=== PATIENT | male | born 1965 | race Caucasian/White ===

== ENCOUNTER → 2018-11-18 11:24 | Outpatient (CLI) | payer OTHER, SELFPAY ==
--- NOTE | 2018-11-18 | DI.MRI.S_ITS ---
PROCEDURE: MR KNEE RT WO CON INDICATIONS: RIGHT MEDIAL KNEE PAIN TECHNIQUE: Noncontrast sagittal PD fast spin echo and T2 fast spin echo with fat saturation, sagittal 3-D FLASH with fat saturation; coronal T1 spin echo and PD fast spin echo with fat saturation, and axial PD fast spin echo with fat saturation through the knee. COMPARISON: [facility], CR, XR KNEE 3 VIEWS RIGHT, 10/09/2018, 14:38. FINDINGS: Image quality: Excellent. Menisci: There is medial meniscal extrusion and large complex tear involving the body as well as anterior and posterior horns of the medial meniscus. There is subtle degenerative tear of the free edge of the posterior horn and body of the lateral meniscus. The meniscal root ligaments appear intact. Cruciate ligaments: The anterior and posterior cruciate ligaments appear intact. Medial structures: The medial collateral ligament appears intact. The posterior oblique ligament, semimembranosus tendon insertions, oblique popliteal ligament, and meniscocapsular junction appear intact. Visualized portions of the pes anserinus tendons appear normal. No abnormal bursal fluid. Lateral structures: The lateral collateral ligament, long and short heads of the biceps femoris tendon appear intact. The popliteus tendon appears normal; the popliteofibular ligament appears intact. The posterosuperior and anteroinferior popliteomeniscal fascicles appear intact. The arcuate and fabellofibular ligaments appear intact, on either side of the lateral inferior geniculate artery. Iliotibial band appears normal. Anterior structures: The quadriceps and patellar tendons appear intact. Patellar alignment is normal. No femoral trochlear dysplasia or ventral trochlear prominence. No edema in the infrapatellar fat pad. Bones and cartilage: No bone fractures. There is bone marrow contusion involving the medial femoral condyle and medial tibial plateau likely sequelae of bone on bone. There is tricompartmental cartilage thinning and fibrillation, most pronounced in the medial femorotibial compartment and patellofemoral compartment. Joint space: There is moderate knee joint effusion. There is a small Vela's cyst. Normal appearing synovial plicae are incidentally noted. IMPRESSION: 1. Medial meniscal extrusion and large complex tear of the medial meniscus. 2. Subtle degenerative tear of the free edge of the posterior horn and body of the lateral meniscus. 3. Bone marrow contusion involving the medial femoral condyle and medial tibial plateau, likely sequelae of bone on bone. 4. Moderate knee joint effusion. 5. Small Vela cyst. Dictated by: Faye Salter M.D. on 11/18/2018 at 13:00 Approved by: Faye Salter M.D. on 11/18/2018 at 14:42
== END ==
PROVIDERS: Visit Provider Physical Medicine & Rehabilitation
DX: M25.561 Pain in right knee (principal); S83.231A Complex tear of medial meniscus, current injury, right knee, initial encounter; S83.281A Other tear of lateral meniscus, current injury, right knee, initial encounter; S80.01XA Contusion of right knee, initial encounter; M25.461 Effusion, right knee; M71.21 Synovial cyst of popliteal space [Baker], right knee
CPT/HCPCS: 73721

== ENCOUNTER → 2018-12-04 13:48 | Outpatient (CLI) | payer OTHER, SELFPAY ==
--- NOTE | 2018-12-04 | DI.MRI.S_ITS ---
PROCEDURE: MR KNEE RT WO CON INDICATIONS: RIGHT KNEE PAIN TECHNIQUE: Noncontrast sagittal PD fast spin echo and T2 fast spin echo with fat saturation, sagittal 3-D FLASH with fat saturation; coronal T1 spin echo and PD fast spin echo with fat saturation, and axial PD fast spin echo with fat saturation through the knee. COMPARISON: [facility], MR, MR KNEE RT WO CON, 11/18/2018, 12:18. FINDINGS: Image quality: Excellent. Menisci: Medial meniscal tear involving the posterior horn and body with severely macerated appearance of the body and extruded meniscal fragments, possibly within the medial gutter. Lateral meniscus demonstrates truncation of the free margin of the body Cruciate ligaments: The anterior and posterior cruciate ligaments appear intact. Medial structures: The medial collateral ligament appears intact. The posterior oblique ligament, semimembranosus tendon insertions, oblique popliteal ligament, and meniscocapsular junction appear intact. Visualized portions of the pes anserinus tendons appear normal. No abnormal bursal fluid. Lateral structures: The lateral collateral ligament, long and short heads of the biceps femoris tendon appear intact. The popliteus tendon appears normal; the popliteofibular ligament appears intact. The posterosuperior and anteroinferior popliteomeniscal fascicles appear intact. The arcuate and fabellofibular ligaments appear intact, on either side of the lateral inferior geniculate artery. Iliotibial band appears normal. Anterior structures: The quadriceps and patellar tendons appear intact. There is prepatellar and superficial infrapatellar subcutaneous edema. Patellar alignment is normal. No femoral trochlear dysplasia or ventral trochlear prominence. No edema in the infrapatellar fat pad. Bones and cartilage: No discrete low signal fracture line. Incidentally noted bipartite patella. Marrow edema within the medial tibial plateau and femoral condyle appears slightly less conspicuous since the prior study. Within the medial compartment, diffuse near full-thickness loss of the femoral and tibial articular cartilage with subchondral sclerosis and marrow edema. Within the lateral compartment, mild surface fraying of the central weightbearing femorotibial articular cartilage. Within the patellofemoral compartment, diffuse surface fraying of the patellar and femoral trochlear articular cartilage. Joint space: Moderate joint effusion. Vela's cyst is present measuring approximately 3-4 cm in the cephalocaudad dimension, and contains a loose body measuring approximately 1 cm. IMPRESSION: Complex medial meniscal tear involving the posterior horn and body, with possible displaced meniscal fragments in the medial gutter. No interval change Truncation of the free margin of the lateral meniscus. Moderate joint effusion as before. Vela's cyst which contains a loose body as above. Tricompartmental joint degeneration. No interval change Dictated by: Isreal Baptiste M.D. on 12/04/2018 at 17:33 Approved by: Isreal Baptiste M.D. on 12/04/2018 at 17:40
== END ==
PROVIDERS: Visit Provider Orthopaedic Surgery
DX: M25.561 Pain in right knee (principal); S83.231A Complex tear of medial meniscus, current injury, right knee, initial encounter; M25.461 Effusion, right knee; M71.21 Synovial cyst of popliteal space [Baker], right knee; M17.11 Unilateral primary osteoarthritis, right knee
CPT/HCPCS: 73721

== ENCOUNTER 2018-12-24 11:02 | Inpatient (IN) | payer OTHER, SELFPAY ==
[2018-12-11 09:52] VITALS: BMI 37.7
[2018-12-24] VITALS (17 sets, daily range): BP systolic 92–142; BP diastolic 42–90; PULSE 58–88; RESP 10–20; TEMP 36.1–37.2; O2SAT 92–98; BMI 37.0
[2018-12-24] MEDS: LACTATED RINGERS 1,000 ML 42 ML IV (11:53)
[2018-12-24] MEDS: ACETAMINOPHEN 325 MG TABLET 975 MG PO ×2 (11:55→20:40)
[2018-12-24] MEDS: CELECOXIB 200 MG CAPSULE PO (11:56)
[2018-12-24] MEDS: PREGABALIN 75 MG CAPSULE PO (11:56)
--- NOTE | 2018-12-24 12:08 | PM.PREOP ---
Pre-operative Note Interval Note History & Physical reviewed/Exam performed by Physician: Yes Changes to H&P: No
--- NOTE | 2018-12-24 12:09 | PM.OP.1 ---
Operative Date/Time/Diagnoses Date of procedure: 12/24/18 Time of procedure: 15:38 Pre-op diagnosis: Right knee osteoarthritis Post-op diagnosis: same Procedure & Clinicians Procedure: Right total knee arthroplasty Same procedure as scheduled: Yes Indications: The patient presents today for total knee arthroplasty after failure of conservative treatment. The nature of the procedure including the risks and benefits, alternatives, postoperative course and expected outcome were discussed and all questions answered. Consent was obtained. Operative site confirmed and marked. Surgeon: Lyndon Liao Financial Operations Clerk: Mendez Ureña Anesthesia Type: Spinal and Local Operative Notes Findings: Severe tricompartmental osteoarthritis. Closure Type: primary Specimen(s): none sent Prosthetic devices, grafts, tissues, transplants, or devices: [employer] [address] [employer]: [xx] femoral component, [xx] tibial component, [xx] mm BCS polyethylene tray and [xx] mm round patella Applied: implant(s) Estimated Blood Loss (mL): 50 Blood products transfused: none Tourniquet time (min): 26 Procedure in detail: The patient was taken to the operative suite and placed under spinal anesthesia. The patient was given prophylactic antibiotics prior to surgery. The patient was also given tranexamic acid, 1 g, just prior to surgery for postoperative hemostasis. The lateral knee was prepped and the joint injected with 20 mL of 1% Lidocaine with epinephrine. The knee was then prepped and draped in usual sterile fashion. The leg was exsanguinated with an Esmarch dressing and the tourniquet raised to 250 torr. A 15 cm anterior incision was made. Next a medial trivector arthrotomy was made. The extensor mechanism was marked to ensure accurate repair. Initial exposing dissection was carried out medially and laterally. The knee was then extended and the patellar thickness was measured and a cut made removing approximately 9 mm of bone with a goal of restoring normal patellar thickness. The patella was then sized and drilled. Some excess lateral bone was excised and the patellofemoral ligament released. The tourniquet was then released. The knee was then flexed and the [employer] femoral guide was placed. The anterior pins were placed and the distal rotation holes drilled. The distal cutting guide was placed and the templated distal femoral cut was made. The templating cutting block was then placed and the anterior, posterior and chamfer cuts made. The [employer] tibial guide was placed and the alignment checked along the axis of the proximal tibial with a francis. The proximal tibial cut was then made with an oscillating saw. All meniscus and bony debris was then removed. Flexion extension gaps were checked. No specific balancing was required other than routine exposure and removal of osteophytes. The soft tissues were then injected with a combination of 20 mL of half percent Marcaine with epinephrine and 20 mL of Exparel. The trial components were then placed. The knee went into full extension and flexion beyond 120?. There was excellent medial- lateral balance throughout motion. the knee did go into slight hyperextension with trialing a thicker polyethylene created too much collateral tightness both medially and laterally. Patellar tracking was excellent. The trial components were removed and size is confirmed for the final implants. The knee was then exsanguinated with an Esmarch dressing and the tourniquet reapplied for cementing. The knee was cleansed with Pulsavac irrigation and dried. The final components were cemented in with high viscosity vacuum mixed bone cement with antibiotics. The knee was held in extension and the patellar clamp until the cement had adequately cured. The knee was then irrigated with dilute Betadine solution. The extensor mechanism was closed with 5 interrupted #1 Vicryl sutures in 90 degrees of flexion. The joint was then injected with a combination of 1 g of tranexamic acid and 20 mL of quarter percent Marcaine with epinephrine. The subcutaneous tissue was closed with 2-0 Vicryl. The skin was closed with rylee and surgical adhesive. An Aquacel dressing and Lopez wrap were then applied. Complications: none Condition: stable Disposition: PACU Plan for aftercare: [facility] protocol for total knee arthroplasty.
--- NOTE | 2018-12-24 13:15 | DI.RAD.S_ITS ---
PROCEDURE: XR KNEE RT 1TO2V INDICATIONS: right TKA TECHNIQUE: 2 view(s) of the knee acquired. COMPARISON: None. FINDINGS: Bones: Patient is status post knee joint arthroplasty. Hardware components are in expected positions. Visualized bony structures are intact. Soft tissues: Overlying postoperative changes are noted. IMPRESSION: Expected postoperative alignment after right total knee arthroplasty. Dictated by: Raffy Hurley M.D. on 12/24/2018 at 16:35 Approved by: Raffy Hurley M.D. on 12/24/2018 at 16:38
[2018-12-24] MEDS: CEFAZOLIN 2 GM/100 ML FROZ.PIGGY IV ×2 (13:20→20:46)
--- NOTE | 2018-12-24 13:59 | SUR.OPER ---
Supine on padded OR bed. Pillow under head, arms secured on padded armboards <90 degree abduction. Safety belt across torso. Non-operative leg secured with tape over blanket over lower leg. Operative leg secured in [employer]/Sky positioner. Foam padded brace at thigh of operative leg.
[2018-12-24] MEDS: BUPIVACAINE 0.5% W/ EPI (PF) 10 ML, TRANEXAMIC ACID 1,000 MG, SODIUM CHLORIDE 0.9% 20 ML INJ (14:04)
[2018-12-24] MEDS: LIDOCAINE 1% W/EPI INJ 20 ML INJ (14:04)
[2018-12-24] MEDS: POVIDONE-IODINE 15 ML, SODIUM CHLORIDE 0.9% 250 ML TOP (14:05)
[2018-12-24] MEDS: BUPIVACAINE 0.25% W/ EPI (PF) 40 ML, BUPIVACAINE LIPOSOME 266 MG, SODIUM CHLORIDE 0.9% ... INJ (14:06)
--- NOTE | 2018-12-24 16:21 | SUR.PHASEI ---
received pt from OR with # 2 bag of LR already infused. total IV fluids for OR and PACU = 2000ml. PT TAKEN TO HIS ROOM, ADDITIONAL BEDSIDE REPORT TO RN HUSSAIN. PT DENIES PAIN, RIGHT LEG DRESSING REMAINS DRY AND INTACT WITH 2+ PALPABLE PEDAL PULSES, PT ABLE TO MOVE BOTJH LOWER EXTREMITIES, SPINAL LEVEL ASSESSED AT T 10. IV SITE PATENT AND FLUSHED EASILY.
[2018-12-24] MEDS: OXYCODONE IR 5 MG TABLET PO ×3 (17:47→22:59)
[2018-12-24] MEDS: HYDROMORPHONE 0.5 MG INJ IV ×6 (18:32→23:58)
--- NOTE | 2018-12-24 18:39 | PC.NURSE ---
Evening Shift Pt arrived on the floor at 1424 and was oriented to the room. No pain reported. Pt c/o 8/10 pain and reported numbness from waist down at 1730. Pt given PO pain meds with no relief, pt was also given IV pain med. 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 Leg elevated, ice packs applied. Will continue to monitor.
[2018-12-24] MEDS: ONDANSETRON 4 MG ODT PO (18:47)
[2018-12-24] MEDS: METFORMIN HCL 500 MG TABLET PO (20:40)
[2018-12-24] MEDS: IBUPROFEN 400 MG TABLET 800 MG PO (20:40)
[2018-12-24] MEDS: ASPIRIN EC 81 MG TABLET PO (20:40)
[2018-12-24] MEDS: GABAPENTIN 100 MG CAPSULE PO (20:42)
[2018-12-25] VITALS (12 sets, daily range): BP systolic 123–143; BP diastolic 65–118; PULSE 84–103; RESP 12–19; TEMP 36.8–38; O2SAT 91–98
[2018-12-25] MEDS: ONDANSETRON 4 MG ODT PO ×2 (01:24→05:42)
[2018-12-25] MEDS: OXYCODONE IR 10 MG TABLET PO ×6 (01:47→19:34)
[2018-12-25] MEDS: HYDROMORPHONE 0.5 MG INJ IV ×2 (03:15→06:16)
[2018-12-25] MEDS: CEFAZOLIN 2 GM/100 ML FROZ.PIGGY IV (05:07)
[2018-12-25 06:18] LABS: Hematocrit 40.5 % (41-53); Hemoglobin 13.9 g/dL (13.5-17.5)
--- NOTE | 2018-12-25 07:21 | PM.DS.1 ---
History of Present Illness Chief complaint: [id number] RIGHT TOTAL KNEE ARTHROPLASTY Discharge Providers Date of admission: 12/24/18 11:02 Primary care physician: Kevin Zamora MD Consults: 12/24/18 16:24 Consult to Discharge Planning Routine Comment: Consult to Physical Therapy Evaluate & Treat Comment: Physician Instructions: postop TKA protocol Consult to Respiratory Therapy Evaluate & Treat Comment: Physician Instructions: Evaluate and treat Discharge provider: Luann Walker PA-C Exam Vital Signs (past 8 hours): - 12/24/18 23:30 12/25/18 03:05 Temperature 98.0 F 98.5 F Pulse Rate 88 87 Respiratory Rate 19 19 Blood Pressure 118/74 143/80 H Pulse Oximetry 92 94 Fraction of Inspired Oxygen 21 Oxygen Delivery Method Room Air Oxygen Flow Rate 0 Objective Labs Result Diagrams: 12/25/18 05:42 Labs: Laboratory Results - last 24 hr 12/25/18 05:42 Hgb 13.9 Hct 40.5 L Discharge Plan Discharge Plan Patient Disposition: Home Discharge Med Rec/Prescriptions Prescriptions: New acetaminophen 325 mg Tablet 975 mg PO TID Qty: 0 RF: 0 aspirin 81 mg Tablet,Delayed Release (Dr/Ec) 81 mg PO BID Qty: 0 RF: 0 oxycodone 5 mg Tablet 5 mg PO Q4-6H PRN (Reason: Pain, Moderate (4-6)) Qty: 0 RF: 0 Continued metformin 500 mg Tablet 500 mg PO BID RF: 0 ibuprofen 800 mg Tablet 800 mg PO BID RF: 0 gabapentin 100 mg Capsule 100 mg PO BID PRN (Reason: Pain (Scale Score 1-3)) RF: 0 Discontinued naproxen sodium [Aleve] 220 mg Capsule 440 mg PO QAM RF: 0 Follow up/Referrals: Lyndon Liao MD [Physician] - (Follow up in 5-7 days at your previously scheduled appointment. Please check your [facility] book for more information.) Provider Discharge Instructions Diet: Diet as Tolerated Activity: Weightbearing as tolerated, elevate affected extremity regularly to help with swelling Cold/Heat Therapy: Apply ice 20 minutes at a time at least hourly while awake Other treatments: Please see [facility] book for more information on exercises as well as for any questions or concerns. Skin/Wound/Dressing Care Report to your healthcare provider any signs of infection, such as:: chills, fever, night sweats, increased pain, unusual drainage and unusual redness Dressing: keep dressing clean, dry, and intact. May shower with it in place but no soaking. Visit Report/Discharge Packet Instructions: DI for Knee Replacement Stand Alone Forms: Surgery Discharge Discharge Data Primary Care Provider: Kevin Zamora Attending Provider: Lyndon Liao Admit Date/Time: 12/24/18 11:02 Quality VTE Deep Vein Thrombosis/Pulmonary Embolism Present on Admission: No
--- NOTE | 2018-12-25 07:42 | P.PN_ITS ---
Subjective Date Patient Seen: 12/25/18 Interval history: Patient is seen bedside status post right total knee arthr oplasty with Dr. Liao postop day 1. Patient has block is worn off and pain is being controlled by oxycodone. He rates his pain at about 5/10. He complains of significant nausea/vomiting at this time and does not feel ready to go home yet. Denies CP, SOB, calf pain. Exam Vital Signs (past 8 hours): - 12/25/18 03:05 Temperature 98.5 F Pulse Rate 87 Respiratory Rate 19 Blood Pressure 143/80 H Pulse Oximetry 94 Fraction of Inspired Oxygen 21 Oxygen Delivery Method Room Air Oxygen Flow Rate 0 Narrative Exam Narrative: Well-developed, well-nourished, no acute distress. Alert and oriented to person, place, and time. Dressing on operative knee is clean, dry, and intact with no signs of drainage. Minimal erythema and generalized swelling around the surgical site. Neurovascularly intact in operative extremity with a soft and compressible calf. Range of motion of the operative ankle intact. Objective Labs Result Diagrams: 12/25/18 05:42 Labs: Laboratory Results - last 24 hr 12/25/18 05:42 Hgb 13.9 Hct 40.5 L Assessment & Plan Post-op Postoperative Procedures Operation Date: 12/24/18 13:00 Actual Procedures Side Surgeon p Total Knee Arthroplasty Right Lyndon Liao MD 1. POD #1 s/p above procedure-PT, pain control. 2. Nausea/vomiting-changed Zofran to Vistaril and Phenergan PA as needed. Likely related to narcotic use. Dispo-d/c in next day or two when pain is controlled and patient has been cleared by PT Quality VTE Deep Vein Thrombosis/Pulmonary Embolism Present on Admission: No
[2018-12-25] MEDS: hydrOXYzine pamoate 25 MG CAPSULE 50 MG PO ×3 (08:53→16:27)
[2018-12-25] MEDS: IBUPROFEN 400 MG TABLET 800 MG PO ×2 (08:58→20:10)
[2018-12-25] MEDS: METFORMIN HCL 500 MG TABLET PO ×2 (08:59→20:09)
[2018-12-25] MEDS: GABAPENTIN 100 MG CAPSULE PO (08:59)
[2018-12-25] MEDS: ASPIRIN EC 81 MG TABLET PO ×2 (08:59→20:10)
[2018-12-25] MEDS: ACETAMINOPHEN 325 MG TABLET 975 MG PO ×3 (08:59→20:09)
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
--- NOTE | 2018-12-25 14:20 | PT.IPTN ---
Current Diagnoses Unilateral primary osteoarthritis, right knee (12/24/18) Other tear of medial meniscus, current injury, right knee, initial encounter (12/24/18) Surgery Performed Operation Date: 12/24/18 13:00 Actual Procedures p Total Knee Arthroplasty(Right) - Lyndon Liao MD Physical Therapy Treatment Note M2 PT-IP Current Condition Start: 12/25/18 13:02 Freq: NEEDED Status: Active Protocol: Document 12/25/18 11:12 AB (Rec: 12/25/18 13:19 AB [id number]) Physical Therapy Current Condition Current Condition Evaluation Date 12/25/18 Treatment Diagnosis s/p R TKA; difficulty in walking Onset Date 12/24/18 Precautions Other Precautions h/o Hep C Weight Bearing Status Weight Bearing Status Weight Bear as Tolerated M3 PT-IP Subjective Start: 12/25/18 13:02 Freq: NEEDED Status: Active Protocol: Document 12/25/18 14:23 GGD (Rec: 12/25/18 14:41 GGD [email or web address]) Subjective Physical Therapy Visit Type Type Treatment Note Visit Start Time 14:00 Visit Stop Time 14:20 Total Visit Minutes 20 Number of B AND B GANG WORKER Visits 1 Physical Therapy Visit Comments Patient Comments Pt states he needs to use the bathroom. Therapy Pain Assessment Pain When Pain Assessed At Rest Pain Present Pain Present Pain Reported M4 PT-IP Mobility and Gait Start: 12/25/18 13:02 Freq: NEEDED Status: Active Protocol: Document 12/25/18 14:23 GGD (Rec: 12/25/18 14:41 GGD [email or web address]) PT-Bed Mobility Assessment Supine to Sit Supine to Sit Standby Assistance Sit to Supine Sit to Supine Standby Assistance PT-Transfer Assessment Sit to and From Stand Sit to and from Stand Contact Guard Assistance 1 Person Assistance Use of Upper Extremities Equipment Transfer Assistive Device Bed Rail Front Wheeled Walker Orthotic/Prosthetic Devices or Brace: No Transfers Transfer Destination Bed Transfer Ability Level of Assist Minimal Assistance 1 Person Assistance Use of Upper Extremities Gait Assessment Gait Gait Assistance Required: Minimum Assistance 1 Person Assist Distance (Feet) 12 Able to Maintain Weight Bearing Status Yes During Gait Assistive Devices Assistive Device Gait Belt Front Wheeled Walker Orthotic/Prosthetic Devices or Brace: No Gait Deviations General Gait Pattern Antalgic Decreased Stride Length Decreased Feet Clearance Factors Limiting Gait Function Factors Limiting Gait Function Decreased Activity Tolerance Decreased Strength Difficulty Following Directions Limited Range of Motion Pain Poor Balance Poor Safety Awareness Respiratory Distress Comments Gait Comments c/o lightheadedness during standing BP: 159/89 M5 PT-IP Objective Assessments Start: 12/25/18 13:02 Freq: NEEDED Status: Active Protocol: Document 12/25/18 11:12 AB (Rec: 12/25/18 13:19 AB [id number]) Orientation Orientation/Cognition Level of Alertness Obtunded Orientation Name Place Safety Awareness Decreased Safety Awareness Gross Range of Motion Lower Extremity ROM Assessment Right Impaired Impairments R knee flexion: up to 60 deg R knee extension: lacking ~ 15 deg to neutral Strength Lower Extremity Strength Assessment Right Impaired Knee 3+/5 Muscle Tone Muscle Tone WNL Yes M6 PT-IP Treatment Start: 12/25/18 13:02 Freq: NEEDED Status: Active Protocol: Document 12/25/18 14:23 GGD (Rec: 12/25/18 14:41 GGD [email or web address]) Physical Therapy Treatment Exercises Exercises Seated Knee Flexion/Extension Education Education Provided Weight Bearing Status Safety M7 PT-IP Assessment and Plan Start: 12/25/18 13:02 Freq: NEEDED Status: Active Protocol: Document 12/25/18 14:23 GGD (Rec: 12/25/18 14:41 GGD [email or web address]) PT Summary Assessment and Plan Summary Assessment Summary Pt improve with mobility and needed less assist. He is impulsive with mobility. Pt was unable to progress gait due to C/O lightheadedness. He plans on D/C home with spouse . Frequency of Treatment Frequency Of Treatment Twice a Day Treatment Plan Physical Therapy Treatment Plan Bed Mobility Training Transfer Training Gait Training Therapeutic Exercise Balance Retraining Post Op Education Discharge Planning Hot or Cold Pack Neuromuscular Re-ed Coordination Retraining Manual Therapy Other Recommendations and Next Treatment caregiver training; ambulation Focus Recommendations To Nursing Amount of Assist Needed 1 Person Assist Discharge Recommendations PT Discharge Recommendations Home with 08/04 Assist Outpatient PT
--- NOTE | 2018-12-25 15:51 | PC.NURSE ---
PATIENT MOVING BETTER TODAY, PATIENT STATES HIS PAIN IS BETTER CONTROLLED WITH ADDITION OF VISTARIL. UP TO CHAIR AND INTO BATHROOM WITH 1 MIN ASSIST AND WALKER. AT BEDSIDE. AQUACEL DRESSING REMAINS CDI, NO BLEEDING OR DRAINAGE NOTED. +CMS. REFUSED BREAKFAST, TOLERATED ALL OF HIS LUNCH. NO N/V. VOIDING WITHOUT DIFFICULTY. CALL LIGHT WITHIN REACH.
[2018-12-25] MEDS: ONDANSETRON 4 MG/2 ML INJ IV (19:38)
--- NOTE | 2018-12-25 20:32 | PC.NURSE ---
Addendum entered by Elysia Mcqueen R.N. 12/25/18 21:11: This RN paged ortho and updated on pt condition and increased temp and HR. Ortho to be paged if pt continually tachy above 110 and febrile. Pt currently awake and alert, O2 95% on 2L NC, HR 90's, denies pain. Encouraged continual use of spirometer and increase intake. Original Note: Evening Shift Note Pt complaint of 8/10 pain, medicated w/ 10mg oxycodone. Pt extremely drowsy and shallow breathing upon 30 minute check. pt oxygen saturation checked and 88% on RA. Pt placed on 2L NC. Pt observed by this RN for a few minutes, it was noted pt was experiencing episodes of apneic breathing. Pt easily aroused. RT at bedside for input. Narcan at bedside. Pt placed at 30 degrees, 4L NC and continuous pulse oximetry. Vitals taken HTN and temp at 100.4, Tylenol given. Pt kept awake, used spirometer while awake several times. Vitals retaken BP 123/65, temp 99.7. This RN at bedside monitoring pt, pt currently able to maintain oxygen saturations while sleeping above 93%, on 4L NC and cont pulse ox. This RN to call ortho and update.
[2018-12-26] VITALS (8 sets, daily range): BP systolic 112–153; BP diastolic 66–88; PULSE 85–99; RESP 18–20; TEMP 36.2–37.8; O2SAT 90–99
[2018-12-26] MEDS: hydrOXYzine pamoate 25 MG CAPSULE 50 MG PO ×2 (00:14→04:13)
[2018-12-26] MEDS: OXYCODONE IR 10 MG TABLET PO ×6 (00:15→22:56)
--- NOTE | 2018-12-26 03:59 | PC.NURSE ---
Pt continues to have pain 6-7/10, Oxycodone given Q3 hrs, vistiril Q4 hrs. Pt has clear lung sounds bilaterally. Some edema in knee 1+, aleven dressing is clean, dry and intact. Pt continues to be on 2 liters O2, NC O2 sats 95-96%. Temp was negative at beginning of shift and at 0325 temp was 99.8. Pt's blood sugar was 125 @0325.
[2018-12-26] MEDS: ACETAMINOPHEN 325 MG TABLET 975 MG PO ×3 (08:37→20:31)
[2018-12-26] MEDS: ASPIRIN EC 81 MG TABLET PO ×2 (08:38→20:32)
[2018-12-26] MEDS: METFORMIN HCL 500 MG TABLET PO ×2 (08:38→20:32)
[2018-12-26] MEDS: IBUPROFEN 400 MG TABLET 800 MG PO ×2 (08:38→20:32)
--- NOTE | 2018-12-26 09:02 | PM.PNPO.1 ---
Subjective Date Patient Seen: 12/26/18 Time Patient Seen: 09:03 Interval history: POD #2 s/p right tka with Dr. Liao. Patient having significant pain control issues. He has been very limited with PT as he is in too much pain to work with them. blood sugar this morning was 145. No nausea or vomiting today. He is having difficulty taking the Vistaril as he is getting heart palpitations, and feeling foggy. Exam Vital Signs (past 8 hours): - 12/26/18 03:33 12/26/18 03:42 12/26/18 05:29 Temperature 99.8 F H 99.8 F H 99.3 F Pulse Rate 86 Respiratory Rate 20 Blood Pressure 153/80 H Pulse Oximetry 98 Fraction of Inspired Oxygen 21 Oxygen Delivery Method Nasal Cannula Oxygen Flow Rate 0 Narrative Exam Narrative: Patient lying in bed. He is alert oriented x3. Dressing on right knee is CDI. Calves are soft, compressible, nontender bilaterally. He is able to actively dorsiflex and plantar flex. Pulses are symmetrical. Objective Labs Result Diagrams: 12/25/18 05:42 Assessment & Plan Post-op (1) S/P total knee arthroplasty: (2) Diabetes: Postoperative Procedures Operation Date: 12/24/18 13:00 Actual Procedures Side Surgeon p Total Knee Arthroplasty Right Lyndon Liao MD DC Vistaril. Patient can take Flexeril if he develops any muscle spasms. He is not complaining of any muscle spasms thus far. Changed oxycodone to 15 mg every 3 hours for severe pain. Patient will ambulate with physical therapy today. If he is unable to get out of bed this morning, he should at the very least be working on exercises in bed. Patient will likely discharge home tomorrow. Quality VTE Deep Vein Thrombosis/Pulmonary Embolism Present on Admission: No
--- NOTE | 2018-12-26 09:06 | CM.DANOTE ---
Addendum entered by Sabiha Salguero LPN 12/26/18 09:16: Met as planned with pt and his Smitha, at bedside. Introduced self and role. Pt reports that his knee is still very painful. He says that ortho team have not been in to see him yet today. He does have OUTPT PT set up at the PT clinic on [address], and when he is d/c'd his will be driving him home. Asked about his specialized boot for R foot deformity as per the pre-op assessment notes. He states he wore this for about 6 months and it never helped at all. I have not been wearing it and I did not bring it to the hospital. Will discuss in Team Rounds and follow accordingly. Original Note: Discharge Planning/Care Management DCP: assessment: case received yesterday and discussed in Team Rounds. Pt is a 53 year old male who admitted for a planned RTKA : surgeon: Dr. Liao Payer: Kirill Kong initially planned for a d/c to home yesterday if pt was cleared by PT...He was not cleared and did have significant pain as block wore off with nausea and vomiting. By end of the day he was doing better on Vistaril but not yet ready for a return to [facility]. Caseload triage decision: see pt today to continue the assessment process. Advanced directive, confirm from FAMILY Start: 12/24/18 16:32 Freq: Q24H Status: Active Protocol: Document 12/24/18 16:40 JS (Rec: 12/24/18 16:42 JS [id number]) Advance Directive, confirm on record Time 16:42 Person contacted pt Copy received No CM Discharge Assessment Start: 12/26/18 09:04 Freq: Status: Active Protocol: Document 12/26/18 09:05 ITV (Rec: 12/26/18 09:05 ITV [id number]) Discharge Planning Assessment Advance Directives? Yes: Declines further information History Provided By Patient Medical Record Prior Living Arrangements House Household Members spouse Review Status In Process Next Review Type Continued Stay Review Pre-Anesthesia Assessment Start: 12/11/18 09:52 Freq: Status: Active Protocol: Document 12/11/18 09:52 CAB (Rec: 12/11/18 10:35 CAB [id number]) Pre-Anesthesia Assessment Patient Information Reviewed Via Phone Assessment Assessment Completed With Patient Diagnostic Results BMP/CMP CBC EKG Comment Outside labs 11/26/18, ECG 12/01 scanned to record Primary Care Provider Kevin Zamora Seen Specialist in Last 12 Months Yes Specialist Seen Orthopedist Primary Language Wallisian Digestion Operator Required No Height 182.88 cm Weight 126.099 kg Body Mass Index (BMI) 37.7 Hearing Ability Normal Visual Impairment No Limitations Visual Assist Magnifying Glass Dentition Type Teeth, Natural Present Teeth, Missing Barriers to Learning Memory Reading skills Other Aids No Comment Difficulty reading/ understanding Hx Anesthesia Reactions No Hx Family Anesthesia Reaction No Hx Malignant Hyperthermia No Hx Blood Transfusions No Anesthesia Review Requested No Aboriginal Ceremonial Celebrant No alcohol intake former Smoking Status Never smoker Substance Use Type does not use Pain Present Pain Reported Musculoskeletal Symptoms Abnormal Gait Deformity Difficulty Walking Joint Pain History of Falling (Recent or History of No ) Patient is completely paralyzed or No completely immobile Mental Status Oriented to own ability Comment wears boot on right foot deformity Is patient on oxygen? No Does patient have HARGROVE/SOB No Hx Sleep Apnea No Currently Taking a Beta Tyrese No Can You Climb a Flight of Stairs Without Yes SOB Hx Chest Pain No Hx SOB No Hx Syncope or Dizziness No Anti-Coagulant Therapy No Has a Reliability Technologist No Cardiac Testing No Hx Pacemaker/ICD No Pacemaker Rep Required? No Cardiac Clearance Received Not Applicable Diet Type At Home Regular dysphagia No Bladder Pattern Nocturia Urinary Catheter Present No Hx Urinary Self Catheterization No Diabetes Yes: Pt does not check blood sugar at home HgbA1C 6.4 Date 11/27/18 Hx Drug Resistant Organism No Presence of External or Internal Medical No Devices Have you traveled outside the [facility] in the last 30 days? Marital Status Lives With spouse Prior Living Arrangements House Support System Spouse Does the Patient Have Assistance After Yes Surgery Patient Discharge Plan Description Return Home Comment Pt not advised on length of stay per surgeon's office Feels Safe in Current Environment Yes Been Physically Hurt or Threatened By a No Person in Current Environment Do you have thoughts of harming yourself None or others? Are you currently considering suicide? No Do you have a plan to hurt yourself or No Plan others? Do You Have Any Spiritual Beliefs That No May Affect Your HC Choices? Do You Have Any Cultural Practices That No May Affect Your HC Choices? Spiritual Referral None Who Can We Speak to About Patient's Care only Identifying Code for Release of Patient Declines to issue Information Health Care Proxy/Next of Kin Smitha () Health Care Proxy Emergency Contact Name Smitha () Emergency Contact Advance Directives? No: Declines further information PAC Instructions Durable medical equipment Medications to take/avoid Nasal antibiotic No ETOH/petroleum product on skin DOS NPO Post-op transportation Pre-surgical wash Sturdy shoes/comfortable clothes Do not bring valuables and remove jewelry
--- NOTE | 2018-12-26 09:52 | PT.IPTN ---
Current Diagnoses Type 2 diabetes mellitus without complications (12/24/18) Unilateral primary osteoarthritis, right knee (12/24/18) Other tear of medial meniscus, current injury, right knee, initial encounter (12/24/18) Presence of unspecified artificial knee joint (12/24/18) Surgery Performed Operation Date: 12/24/18 13:00 Actual Procedures p Total Knee Arthroplasty(Right) - Lyndon Liao MD Physical Therapy Treatment Note M2 PT-IP Current Condition Start: 12/25/18 13:02 Freq: NEEDED Status: Active Protocol: Document 12/25/18 11:12 AB (Rec: 12/25/18 13:19 AB [id number]) Physical Therapy Current Condition Current Condition Evaluation Date 12/25/18 Treatment Diagnosis s/p R TKA; difficulty in walking Onset Date 12/24/18 Precautions Other Precautions h/o Hep C Weight Bearing Status Weight Bearing Status Weight Bear as Tolerated M3 PT-IP Subjective Start: 12/25/18 13:02 Freq: NEEDED Status: Active Protocol: Document 12/26/18 09:52 AB (Rec: 12/26/18 13:00 AB [id number]) Subjective Physical Therapy Visit Type Type Treatment Note Visit Start Time 09:52 Visit Stop Time 10:15 Total Visit Minutes 23 Number of SALES PRODUCT SPECIALIST Visits 0 Physical Therapy Visit Comments Patient Comments pt agreeable to do PT Therapy Pain Assessment Pain When Pain Assessed At Rest Pain Present Pain Present Pain Reported Location Right Knee Intensity 7 Scale Used Numeric (1 - 10) Pain Management Techniques Apply Cold Re-positioning Timing of Activity with Medications M4 PT-IP Mobility and Gait Start: 12/25/18 13:02 Freq: NEEDED Status: Active Protocol: Document 12/26/18 09:52 AB (Rec: 12/26/18 13:00 AB [id number]) PT-Bed Mobility Assessment Supine to Sit Supine to Sit Standby Assistance Scooting Scooting to Edge of Bed Standby Assistance PT-Transfer Assessment Sit to and From Stand Sit to and from Stand Minimal Assistance 1 Person Assistance Use of Upper Extremities Equipment Transfer Assistive Device Gait Belt Front Wheeled Walker Orthotic/Prosthetic Devices or Brace: No Transfers Transfer Destination Chair Transfer Technique Stand Step Pivot Transfer Ability Level of Assist Contact Guard Assistance Gait Assessment Gait Gait Assistance Required: Contact Guard Assist Distance (Feet) 20 Able to Maintain Weight Bearing Status Yes During Gait Assistive Devices Assistive Device Gait Belt Front Wheeled Walker Orthotic/Prosthetic Devices or Brace: No Gait Deviations General Gait Pattern Antalgic Decreased Stride Length Decreased Feet Clearance Factors Limiting Gait Function Factors Limiting Gait Function Decreased Activity Tolerance Decreased Strength Limited Range of Motion Pain Poor Balance Poor Safety Awareness M5 PT-IP Objective Assessments Start: 12/25/18 13:02 Freq: NEEDED Status: Active Protocol: Document 12/25/18 11:12 AB (Rec: 12/25/18 13:19 AB [id number]) Orientation Orientation/Cognition Level of Alertness Obtunded Orientation Name Place Safety Awareness Decreased Safety Awareness Gross Range of Motion Lower Extremity ROM Assessment Right Impaired Impairments R knee flexion: up to 60 deg R knee extension: lacking ~ 15 deg to neutral Strength Lower Extremity Strength Assessment Right Impaired Knee 3+/5 Muscle Tone Muscle Tone WNL Yes M6 PT-IP Treatment Start: 12/25/18 13:02 Freq: NEEDED Status: Active Protocol: Document 12/26/18 09:52 AB (Rec: 12/26/18 13:00 AB [id number]) Physical Therapy Treatment Exercises Exercises Heel Slides Education Education Provided Precautions Safety Other Treatments Other Treatment Performed spouse present during tx session. educated on how to assist pt. will conduct further caregiver training next tx session M7 PT-IP Assessment and Plan Start: 12/25/18 13:02 Freq: NEEDED Status: Active Protocol: Document 12/26/18 09:52 AB (Rec: 12/26/18 13:00 AB [id number]) PT Summary Assessment and Plan Potential Rehabilitation Potential Good Summary Impairments Pain ROM Strength Balance Coordination Sensation Cognition Bed Mobility Transfers Gait Activity Tolerance Progress Towards Goals Progressing Toward Goals Assessment Summary pt requiring CGA to min A with mobility. caregiver training will be conducted. pt plans to go home with spouse to assist. Goals Bed Mobility Goal Independent Transfer Goal Standby Assistance Front Wheeled Walker Gait Goal Standby Assistance Front Wheel Walker Gait Distance 200 Days to Meet Goals 5 Frequency of Treatment Frequency Of Treatment Twice a Day Treatment Plan Physical Therapy Treatment Plan Bed Mobility Training Transfer Training Gait Training Therapeutic Exercise Balance Retraining Post Op Education Discharge Planning Hot or Cold Pack Neuromuscular Re-ed Coordination Retraining Manual Therapy Other Recommendations and Next Treatment caregiver training; ambulation Focus Recommendations To Nursing Amount of Assist Needed 1 Person Assist Discharge Recommendations PT Discharge Recommendations Home with 08/04 Assist Outpatient PT
--- NOTE | 2018-12-26 09:57 | PC.NURSE ---
Addendum entered by Isatu Mattson R.N. 12/26/18 14:10: PAIN/RESP - pt patti lunch in chair, states pain much improved, 4 on scale 0/10 now, using IS freq and 02 sat 95% ra, discussed mobilization with phys therapy this afternoon and given 10mg oxycodone. Original Note: AM NOTE - pt is awake, drowsy with some slurring of speech, responses are appropriate, statess r knee pain 6 on scale 0/10, aquacell dsg cdi, 2l 96%, removed for RA trial and enc freq use IS, pt demonstrated correctly and sat maintained 92-93%, appears mildly anxious, Nichol Henley PA in this am and discussed pain mgt, a 15mg dose oxycodone has been added if needed, pt states reluctant to take too much and will continue at 10mg this am, will dc vistaril due to pt sedation, pt hr 102 and did have temp 100.0 this am, tylenol and ibuprofen scheduled given for pain, after meal given 10mg oxycodone and monique, pt up with phys therapy, ambul in room w/fww, ret to chair.
[2018-12-26] MEDS: OXYCODONE IR 5 MG TABLET 15 MG PO (10:03)
[2018-12-26] MEDS: DOCUSATE 100 MG CAPSULE PO (10:04)
--- NOTE | 2018-12-26 14:21 | PT.IPTN ---
Current Diagnoses Type 2 diabetes mellitus without complications (12/24/18) Unilateral primary osteoarthritis, right knee (12/24/18) Other tear of medial meniscus, current injury, right knee, initial encounter (12/24/18) Presence of unspecified artificial knee joint (12/24/18) Surgery Performed Operation Date: 12/24/18 13:00 Actual Procedures p Total Knee Arthroplasty(Right) - Lyndon Liao MD Physical Therapy Treatment Note M2 PT-IP Current Condition Start: 12/25/18 13:02 Freq: NEEDED Status: Active Protocol: Document 12/25/18 11:12 AB (Rec: 12/25/18 13:19 AB [id number]) Physical Therapy Current Condition Current Condition Evaluation Date 12/25/18 Treatment Diagnosis s/p R TKA; difficulty in walking Onset Date 12/24/18 Precautions Other Precautions h/o Hep C Weight Bearing Status Weight Bearing Status Weight Bear as Tolerated M3 PT-IP Subjective Start: 12/25/18 13:02 Freq: NEEDED Status: Active Protocol: Document 12/26/18 14:21 AB (Rec: 12/26/18 15:47 AB [id number]) Subjective Physical Therapy Visit Type Type Treatment Note Visit Start Time 14:21 Visit Stop Time 14:43 Total Visit Minutes 22 Number of LONG CHAIN BEAMER Visits 0 Physical Therapy Visit Comments Patient Comments pt agreeable to do PT Therapy Pain Assessment Pain When Pain Assessed At Rest Pain Present Pain Present Pain Reported Location Right Knee Intensity 4 Scale Used Numeric (1 - 10) Pain Management Techniques Apply Cold Re-positioning Timing of Activity with Medications M4 PT-IP Mobility and Gait Start: 12/25/18 13:02 Freq: NEEDED Status: Active Protocol: Document 12/26/18 14:21 AB (Rec: 12/26/18 15:47 AB [id number]) PT-Bed Mobility Assessment Supine to Sit Supine to Sit Standby Assistance Sit to Supine Sit to Supine Standby Assistance Scooting Scooting to Edge of Bed Standby Assistance PT-Transfer Assessment Sit to and From Stand Sit to and from Stand Contact Guard Assistance Equipment Transfer Assistive Device Gait Belt Front Wheeled Walker Orthotic/Prosthetic Devices or Brace: No Transfers Transfer Destination Toilet Transfer Technique pt ambulated to the toilet Transfer Ability Level of Assist Standby Assistance Comments Mobility Comments pt used LLE to assist RLE during bed mobility but completed with SBA. caregiver training conducted and spouse was able to safely assist pt with transfers and ambulation using FWW. Gait Assessment Gait Gait Assistance Required: Contact Guard Assist Distance (Feet) 75 Able to Maintain Weight Bearing Status Yes During Gait Assistive Devices Assistive Device Gait Belt Front Wheeled Walker Orthotic/Prosthetic Devices or Brace: No Gait Deviations General Gait Pattern Antalgic Decreased Stride Length Decreased Feet Clearance Factors Limiting Gait Function Factors Limiting Gait Function Decreased Activity Tolerance Decreased Strength Limited Range of Motion Pain Poor Balance Poor Safety Awareness M5 PT-IP Objective Assessments Start: 12/25/18 13:02 Freq: NEEDED Status: Active Protocol: Document 12/25/18 11:12 AB (Rec: 12/25/18 13:19 AB [id number]) Orientation Orientation/Cognition Level of Alertness Obtunded Orientation Name Place Safety Awareness Decreased Safety Awareness Gross Range of Motion Lower Extremity ROM Assessment Right Impaired Impairments R knee flexion: up to 60 deg R knee extension: lacking ~ 15 deg to neutral Strength Lower Extremity Strength Assessment Right Impaired Knee 3+/5 Muscle Tone Muscle Tone WNL Yes M6 PT-IP Treatment Start: 12/25/18 13:02 Freq: NEEDED Status: Active Protocol: Document 12/26/18 14:21 AB (Rec: 12/26/18 15:47 AB [id number]) Physical Therapy Treatment Exercises Exercises Heel Slides Education Education Provided Precautions Safety M7 PT-IP Assessment and Plan Start: 12/25/18 13:02 Freq: NEEDED Status: Active Protocol: Document 12/26/18 14:21 AB (Rec: 12/26/18 15:47 AB [id number]) PT Summary Assessment and Plan Potential Rehabilitation Potential Good Summary Impairments Pain ROM Strength Balance Coordination Sensation Tone Cognition Bed Mobility Transfers Gait Activity Tolerance Progress Towards Goals Progressing Toward Goals Assessment Summary caregiver training conducted and spouse was able to assist pt safely. pt plans to go home tomorrow with spouse to assist. Goals Bed Mobility Goal Independent Transfer Goal Standby Assistance Front Wheeled Walker Gait Goal Standby Assistance Front Wheel Walker Gait Distance 200 Days to Meet Goals 5 Frequency of Treatment Frequency Of Treatment Twice a Day Recommendations To Nursing Amount of Assist Needed 1 Person Assist Discharge Recommendations PT Discharge Recommendations Home with 24/ Assist Outpatient PT
--- NOTE | 2018-12-27 00:15 | PC.NURSE ---
2300- POD #2 R total knww w/ aquacel dressing in place CDI. CMS intact, pulses palpable, slight edema noted in bilat LE's. On RA w/ stable VS; saline locked at this time. Pt states his pain in controlled as he just received an Oxycodone. Noticed chewing tobacco present on pt's bedside; instructed pt he could not use that in the facility. He promptly handed it over to his w/o struggle. Will continue to monitor. Pt is A+Ox3; calls appropriately.
[2018-12-27 00:46] VITALS: BP 115/61; PULSE 80; RESP 18; TEMP 36.1; O2SAT 98
[2018-12-27 04:00] VITALS: BP 111/62; PULSE 74; RESP 18; TEMP 36.2; O2SAT 96
[2018-12-27 08:00] VITALS: BP 125/79; PULSE 91; RESP 18; TEMP 36.8; O2SAT 94
--- NOTE | 2018-12-27 08:00 | P.DS_ITS ---
History of Present Illness Date Patient Seen: 12/27/18 Time Patient Seen: 07:59 Chief complaint: [id number] RIGHT TOTAL KNEE ARTHROPLASTY Narrative: Patient's pain is 5/10 today. He states he is ready for another pain pill. Denies fever chills. No nausea vomiting. Patient states he is ready to go home. His is in the room this morning. Discharge Providers Date of admission: 12/24/18 11:02 Discharge Date: 12/27/18 Primary care physician: Kevin Zamora MD Consults: 12/24/18 16:24 Consult to Discharge Planning Routine Comment: Consult to Physical Therapy Evaluate & Treat Comment: Physician Instructions: postop TKA protocol Consult to Respiratory Therapy Evaluate & Treat Comment: Physician Instructions: Evaluate and treat Discharge provider: Mendez Ureña PA-C Summary Discharge Diagnosis: Status post right total knee arthroplasty Hospital Course: Indications: The patient presents today for total knee arthroplasty after failure of conservative treatment. The nature of the proc edure including the risks and benefits, alternatives, postoperative course and expected outcome were discussed and all questions answered. Consent was obtained. Operative site confirmed and marked. Surgeon: Lyndon Liao Post Form Remover: Mendez Ureañ Anesthesia Type: Spinal and Local Operative Notes Findings: Severe tricompartmental osteoarthritis. Closure Type: primary Specimen(s): none sent Prosthetic devices, grafts, tissues, transplants, or devices: Edmondson and Nephkasey Dorado BCS: [xx] femoral component, [xx] tibial component, [xx] mm BCS polyethylene tray and [xx] mm round patella Applied: implant(s) Estimated Blood Loss (mL): 50 Blood products transfused: none Tourniquet time (min): 26 Patient admitted to the hospital for right total knee arthroplasty. Patient consented to the same. Patient taken to OR and underwent right total knee arthroplasty. Patient back in his room recovering in stable condition. Patient initially had issues with nausea vomiting. That resolved however he did have issues with pain control on postop day 2. Patient's nausea and vomiting have cleared. Patient's pain is better controlled today. Patient is stable for discharge and states he is ready to go home today. Status at Discharge Cognitive/behavioral status at discharge: at baseline, oriented Functional status at discharge: uses cane/walker Overall status at discharge: patient is progressing back to baseline Time Spent with Patient Less than 30 minutes Exam Vital Signs (past 8 hours): - 12/27/18 00:46 12/27/18 04:00 Temperature 97.0 F L 97.1 F L Pulse Rate 80 74 Respiratory Rate 18 18 Blood Pressure 115/61 111/62 Pulse Oximetry 98 96 Fraction of Inspired Oxygen 21 Oxygen Delivery Method Room Air Oxygen Flow Rate 0 Narrative Exam Narrative: Patient is sitting at bedside in no obvious distress. Patient's dressing is clean, dry and intact. moderate swelling generally about the knee. There is some mild erythema and no warmth to touch. sitting at the edge of bed with knee flexed at 90?. Neurovascular status is intact distally right lower extremity. Objective Labs Result Diagrams: 12/25/18 05:42 Discharge Plan Discharge Plan Patient Disposition: Home Discharge comment: DC home today Discharge Med Rec/Prescriptions Prescriptions: New acetaminophen 325 mg Tablet 975 mg PO TID Qty: 0 RF: 0 aspirin 81 mg Tablet,Delayed Release (Dr/Ec) 81 mg PO BID Qty: 0 RF: 0 oxycodone 5 mg Tablet 5 mg PO Q4-6H PRN (Reason: Pain, Moderate (4-6)) Qty: 0 RF: 0 Continued metformin 500 mg Tablet 500 mg PO BID RF: 0 ibuprofen 800 mg Tablet 800 mg PO BID RF: 0 gabapentin 100 mg Capsule 100 mg PO BID PRN (Reason: Pain (Scale Score 1-3)) RF: 0 Discontinued naproxen sodium [Aleve] 220 mg Capsule 440 mg PO QAM RF: 0 Follow up/Referrals: Lyndon Liao MD [Physician] - (Follow up in 5-7 days at your previously scheduled appointment. Please check your [facility] book for more information.) Provider Discharge Instructions Diet: Diet as Tolerated Activity: Weightbearing as tolerated, elevate affected extremity regularly to help with swelling Cold/Heat Therapy: Ice as needed per [facility] Other treatments: Please see [facility] book for more information on exercises as well as for any questions or concerns. Skin/Wound/Dressing Care Report to your healthcare provider any signs of infection, such as:: chills, fever, night sweats, increased pain, unusual drainage and unusual redness Dressing: keep dressing clean, dry, and intact. May shower with it in place but no soaking. Visit Report/Discharge Packet Instructions: DI for Knee Replacement Stand Alone Forms: Surgery Discharge Discharge Data Primary Care Provider: Kevin Zamora Attending Provider: Lyndon Liao Admit Date/Time: 12/24/18 11:02 Quality VTE Deep Vein Thrombosis/Pulmonary Embolism Present on Admission: No
[2018-12-27] MEDS: ACETAMINOPHEN 325 MG TABLET 975 MG PO (08:10)
[2018-12-27] MEDS: DOCUSATE 100 MG CAPSULE PO (08:10)
[2018-12-27] MEDS: ASPIRIN EC 81 MG TABLET PO (08:11)
[2018-12-27] MEDS: METFORMIN HCL 500 MG TABLET PO (08:11)
[2018-12-27] MEDS: OXYCODONE IR 5 MG TABLET 15 MG PO ×3 (08:11→14:18)
--- NOTE | 2018-12-27 08:55 | PT.IPTN ---
Current Diagnoses Type 2 diabetes mellitus without complications (12/24/18) Unilateral primary osteoarthritis, right knee (12/24/18) Other tear of medial meniscus, current injury, right knee, initial encounter (12/24/18) Presence of unspecified artificial knee joint (12/24/18) Surgery Performed Operation Date: 12/24/18 13:00 Actual Procedures p Total Knee Arthroplasty(Right) - Lyndon Liao MD Physical Therapy Treatment Note M2 PT-IP Current Condition Start: 12/25/18 13:02 Freq: NEEDED Status: Active Protocol: Document 12/25/18 11:12 AB (Rec: 12/25/18 13:19 AB [id number]) Physical Therapy Current Condition Current Condition Evaluation Date 12/25/18 Treatment Diagnosis s/p R TKA; difficulty in walking Onset Date 12/24/18 Precautions Other Precautions h/o Hep C Weight Bearing Status Weight Bearing Status Weight Bear as Tolerated M3 PT-IP Subjective Start: 12/25/18 13:02 Freq: NEEDED Status: Active Protocol: Document 12/27/18 08:55 GGD (Rec: 12/27/18 11:49 GGD [email or web address]) Subjective Physical Therapy Visit Type Type Treatment Note Visit Start Time 08:30 Visit Stop Time 08:55 Total Visit Minutes 25 Number of FINANCIAL ANALYSIS CONSULTANT Visits 1 Physical Therapy Visit Comments Patient Comments Pt hopes to go home today. Therapy Pain Assessment Pain When Pain Assessed At Rest Pain Present Pain Present Pain Reported Location Right Knee Intensity 6 Scale Used Numeric (1 - 10) Pain Management Techniques Apply Cold Re-positioning Timing of Activity with Medications M4 PT-IP Mobility and Gait Start: 12/25/18 13:02 Freq: NEEDED Status: Active Protocol: Document 12/27/18 08:55 GGD (Rec: 12/27/18 11:49 GGD [email or web address]) PT-Bed Mobility Assessment Supine to Sit Supine to Sit Standby Assistance Scooting Scooting to Edge of Bed Standby Assistance PT-Transfer Assessment Sit to and From Stand Sit to and from Stand Contact Guard Assistance Equipment Transfer Assistive Device Gait Belt Front Wheeled Walker Orthotic/Prosthetic Devices or Brace: No Transfers Transfer Destination Chair Transfer Ability Level of Assist Standby Assistance Comments Mobility Comments pt used LLE to assist RLE for bed mobility. Gait Assessment Gait Gait Assistance Required: Contact Guard Assist Distance (Feet) 40 Able to Maintain Weight Bearing Status Yes During Gait Assistive Devices Assistive Device Gait Belt Front Wheeled Walker Orthotic/Prosthetic Devices or Brace: No Gait Deviations General Gait Pattern Antalgic Decreased Stride Length Decreased Feet Clearance Factors Limiting Gait Function Factors Limiting Gait Function Decreased Activity Tolerance Decreased Strength Limited Range of Motion Pain Poor Balance Poor Safety Awareness M5 PT-IP Objective Assessments Start: 12/25/18 13:02 Freq: NEEDED Status: Active Protocol: Document 12/25/18 11:12 AB (Rec: 12/25/18 13:19 AB [id number]) Orientation Orientation/Cognition Level of Alertness Obtunded Orientation Name Place Safety Awareness Decreased Safety Awareness Gross Range of Motion Lower Extremity ROM Assessment Right Impaired Impairments R knee flexion: up to 60 deg R knee extension: lacking ~ 15 deg to neutral Strength Lower Extremity Strength Assessment Right Impaired Knee 3+/5 Muscle Tone Muscle Tone WNL Yes M6 PT-IP Treatment Start: 12/25/18 13:02 Freq: NEEDED Status: Active Protocol: Document 12/27/18 08:55 GGD (Rec: 12/27/18 11:49 GGD [email or web address]) Physical Therapy Treatment Exercises Exercises Ankle Pumps Quad Sets Heel Slides Seated Knee Flexion/Extension Education Education Provided Precautions Safety M7 PT-IP Assessment and Plan Start: 12/25/18 13:02 Freq: NEEDED Status: Active Protocol: Document 12/27/18 08:55 GGD (Rec: 12/27/18 11:49 GGD [email or web address]) PT Summary Assessment and Plan Summary Assessment Summary Pt improving with mobility. He was SBA to CGA. Caregiver training conducted and spouse was able to assist pt. Pt unable to progress gait from a step to gait pattern with knee extension and hip hiking to gait with knee flexion with cues. Pt safe for home D/ C. Frequency of Treatment Frequency Of Treatment Twice a Day Treatment Plan Physical Therapy Treatment Plan Bed Mobility Training Transfer Training Gait Training Therapeutic Exercise Balance Retraining Post Op Education Discharge Planning Hot or Cold Pack Neuromuscular Re-ed Coordination Retraining Manual Therapy Other Recommendations and Next Treatment caregiver training; ambulation Focus Recommendations To Nursing Amount of Assist Needed 1 Person Assist Discharge Recommendations PT Discharge Recommendations Home with 08/04 Assist Outpatient PT
[2018-12-27] MEDS: IBUPROFEN 400 MG TABLET 800 MG PO (11:42)
[2018-12-27 12:00] VITALS: BP 102/56; PULSE 75; RESP 18; TEMP 36.6; O2SAT 93
--- NOTE | 2018-12-27 13:10 | PC.NURSE ---
pt took 10mg of po oxycodone this am and was given just 5mg at his request around 1130. He will be discharging back to home around 1445..
== END 2018-12-27 14:40 | disposition home or self-care (01) | DRG 470 ==
PROVIDERS: Admitting Provider Orthopaedic Surgery; PCP Family Medicine; Visit Provider Orthopaedic Surgery
PROC: 0SRC0JZ Replacement of Right Knee Joint with Synthetic Substitute, Open Approach (ICD-10-PCS; CPT 27447; principal; 2018-12-24 13:00)
DX: M17.11 Unilateral primary osteoarthritis, right knee (principal); E11.9 Type 2 diabetes mellitus without complications; G40.909 Epilepsy, unspecified, not intractable, without status epilepticus; Z79.84 Long term (current) use of oral hypoglycemic drugs; R11.2 Nausea with vomiting, unspecified
CPT/HCPCS: 36415; 73560; 82962; 85014; 85018; 94760; 97116; 97162; 97530; C1776; C9290; J0690; J1170; J2250; J2405; J2704; J3010

== ENCOUNTER 2021-03-13 16:01 | Emergency (ER) | payer OTHER, SELFPAY ==
[2018-12-24 16:27] VITALS: BMI 37.0
[2021-03-13 16:09] VITALS: BP 151/87; PULSE 80; RESP 16; TEMP 37.1; O2SAT 98
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
[2021-03-13] MEDS: TET,DIPH,PERTUSS(ACELL),VAC/PF 0.5 ML SYRINGE IM (18:30)
[2021-03-13] MEDS: LIDO 1%/SOD BICARB 8.4% (10ML) 10 ML SYRINGE INJ (18:31)
[2021-03-13] MEDS: cephALEXin 250 MG CAPSULE 500 MG PO (20:08)
[2021-03-13] MEDS: BACITRACIN OINT 0.9 GM PCKT 1 APPLIC TOP (20:26)
[2021-03-13 20:29] VITALS: BP 140/80; PULSE 76; RESP 18; O2SAT 99
== END 2021-03-13 20:29 | disposition home or self-care (01) ==
PROVIDERS: Emergency Provider Emergency Medicine; PCP Family Medicine
DX: S62.606A Fracture of unspecified phalanx of right little finger, initial encounter for closed fracture (principal); S61.216A Laceration without foreign body of right little finger without damage to nail, initial encounter; W23.0XXA Caught, crushed, jammed, or pinched between moving objects, initial encounter; Z23 Encounter for immunization
CPT/HCPCS: 12001; 64450; 90471; 99283; 99284; 90715

== ENCOUNTER 2023-12-25 21:12 | Emergency (ER) | payer OTHER, SELFPAY ==
[2021-03-21 14:39] VITALS: BMI 37.0
[2023-12-25 21:21] VITALS: BP 162/112; PULSE 92; RESP 24; TEMP 36.7; O2SAT 98; BMI 36.6
--- NOTE | 2023-12-25 21:32 | DI.RAD.S_ITS ---
PROCEDURE: XR RIBS LT MIN 3V W CXR1V INDICATIONS: fall, left chest pain TECHNIQUE: 3 views of the ribs were acquired, along with a single view chest. COMPARISON: None. FINDINGS: Surgical changes and devices: None. Bones and chest wall: No fractures or dislocations. No suspicious bony lesions. Overlying soft tissues appear unremarkable. Lungs and pleura: No pleural effusions or pneumothorax. Lungs appear clear. Mediastinum: Mediastinal contours appear normal. Heart size is normal. IMPRESSION: No displaced rib fracture or pneumothorax. Dictated by: Faye Salter M.D. on 12/25/2023 at 22:44 Approved by: Faye Salter M.D. on 12/25/2023 at 22:45
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
== END 2023-12-25 23:07 | disposition home or self-care (01) ==
PROVIDERS: Emergency Provider Emergency Medicine; PCP Family Medicine
DX: S20.211A Contusion of right front wall of thorax, initial encounter (principal); W18.30XA Fall on same level, unspecified, initial encounter
CPT/HCPCS: 71101; 99283